=== PATIENT | female | born 2000 | race Two or more races ===

== ENCOUNTER 2019-08-27 15:12 | Inpatient (IN) | payer MEDICAID, OTHER ==
[~2019-08-27] VITALS: Ht 157.5 cm; Wt 82.6 kg
[2019-08-27] MEDS ORDERED: PREN-96 PO (15:46)
[2019-08-27] MEDS ORDERED: LACT. RINGERS/OXYTOCIN 20UNITS 1,000 ML IV SCH (16:04)
[2019-08-27] MEDS ORDERED: LACTATED RINGER'S 1,000 ML IV SCH (16:04)
[2019-08-27] MEDS ORDERED: WITCH HAZEL-GLYCERIN PAD TOP PRN (16:15)
[2019-08-27] MEDS ORDERED: METHYLERGONOVINE MALEATE 0.2 MG/ML AMP IM PRN (16:15)
[2019-08-27] MEDS ORDERED: LIDOCAINE 2%HCL (LOCAL ANESTH.) INJ 20ML MDV ID PRN (16:15)
[2019-08-27] MEDS ORDERED: PHISODERM TOP SOLN 240ML BTL TOP PRN (16:15)
[2019-08-27] MEDS ORDERED: DERMOPLAST 60ML BOTTLE TOP PRN (16:15)
[2019-08-27 16:43] LABS: Basophils # (auto) 0 10 ^3/uL (0-0.2); Basophils % (auto) 0.2 % (0.0-2.0); Eosinophils # (auto) 0.1 10 ^3/uL (0-0.8); Eosinophils % (auto) 0.6 % (0.0-7.0); Hematocrit 34.3 % (36.0-46.0); Hemoglobin 11.5 g/dL (12.2-16.2); Lymphocytes # (auto) 1.6 10 ^3/uL (0.4-5.4); Lymphocytes % (auto) 15.6 % (10.0-50.0); Mean Corpuscular Hemoglobin 29.8 pg (28.0-32.0); Mean Corpuscular Hgb Conc. 33.4 g/dL (32.0-36.0); Mean Corpuscular Volume 89.4 fL (80.0-100.0); Monocytes # (auto) 0.3 10 ^3/uL (0-1.3); Monocytes % (auto) 2.9 % (0.0-12.0); Neutrophils % (auto) 80.7 % (37.0-80.0); Nucleated Red Blood Cells % 0.1 %; Platelet Count (auto) 266 10^3/uL (140-450); Red Blood Cells 3.84 10^6/uL (4.0-5.20); Red Cell Distribution Width 13.9 % (11.8-14.3); White Blood Cell 9.9 10^3/uL (4.4-10.8)
[2019-08-27 16:57] LABS: INR 0.9 (0.9-1.15); Partial Thromboplastin Time 25.4 sec (23.64-32.05)
[2019-08-27 17:00] LABS: Albumin 2.4 g/dL (3.4-5.0); Calcium 8.3 mg/dL (8.5-10.1); Potassium 3.6 mmol/L (3.5-5.1)
[2019-08-27 17:04] LABS: BUN/Creatinine Ratio 10.5; Bilirubin, Total 0.2 mg/dL (0.2-1.0); Total Protein 6.6 g/dL (6.4-8.2)
[2019-08-27] MEDS ORDERED: BUTORPHANOL TARTRATE 2 MG/1 ML VIAL IV PRN (17:15)
[2019-08-27] MEDS ORDERED: TERBUTALINE SULFATE 1 MG/ML 1ML VIAL SC PRN (17:30)
[2019-08-27] MEDS ORDERED: fentaNYL 200mCg/100ml W ROPIVA 100 ML EPI SCH ×2 (18:00→19:15)
[2019-08-27] MEDS ORDERED: NALOXONE HCL 0.4 MG/ML VIAL IV ONE ×3 (18:00→19:15)
[2019-08-27] MEDS ORDERED: LIDOCAINE HCL 2 %PF INJ 10ML AMP IJ ONE (18:00)
[2019-08-27] MEDS ORDERED: ePHEDrine SULFATE 50 MG/ML AMP IV ONE ×3 (18:00→19:15)
[2019-08-27] MEDS ORDERED: fentaNYL CITRATE 100 MCG/2 ML VL IV ONE (18:15)
[2019-08-27] MEDS ORDERED: fentaNYL CITRATE 100 MCG/2 ML VL ONE (18:17)
[2019-08-27] MEDS ORDERED: SODIUM CHLORIDE 0.9% 500 ML IV PRN (19:08)
[2019-08-27] MEDS ORDERED: LACTATED RINGER'S 1,000 ML IV ONE (19:08)
[2019-08-27] MEDS ORDERED: LIDOCAINE W/ EPINEPHRINE 1 % INJ 30ML IJ ONE (19:15)
[2019-08-27] MEDS ORDERED: BETAMETHASONE ACET (6MG/ML) 5ML VIAL IM ONE (21:00)
[2019-08-27] MEDS ORDERED: ACETAMINOPHEN 325 MG TAB PO ONE (21:30)
[2019-08-27] MEDS ORDERED: CLINDAMYCIN 900MG IV 50 ML IV SCH (22:00)
[2019-08-28] MEDS ORDERED: ACETAMINOPHEN 325 MG TAB PO PRN (00:30)
[2019-08-28] MEDS ORDERED: LACT. RINGERS/OXYTOCIN 20UNITS 1,000 ML IV SCH (01:18)
[2019-08-28 03:30] VITALS: BP 107/55
[2019-08-28 04:54] LABS: Alcohol, Urine < 3.0 mg/dL (0-10); Amphetamine Screen, Urine NEGATIVE (NEGATIVE); Barbiturate Scree,Urine NEGATIVE (NEGATIVE); Benzodiazephine Screen, Urine NEGATIVE (NEGATIVE); Cannabinoid Screen, Urine NEGATIVE (NEGATIVE); Cocaine Screen, Urine NEGATIVE (NEGATIVE); Opiate Scree,Urine NEGATIVE (NEGATIVE); Phencyclidine Screen, Urine NEGATIVE (NEGATIVE)
[2019-08-28 04:58] LABS: Urine Bacteria FEW /hpf (None Seen); Urine Blood 2+ /uL (Negative); Urine Specific Gravity 1.013 (1.001-1.035); Urine WBC 272 /hpf (0 - 5)
[2019-08-28 07:30] VITALS: BP 118/74
[2019-08-28] MEDS: IBUPROFEN 600 MG TAB PO PRN (08:35)
[2019-08-28 11:00] VITALS: BP 96/54
[2019-08-28 15:00] VITALS: BP 112/55
[2019-08-28 19:15] VITALS: BP 117/74
[2019-08-28 23:25] VITALS: BP 109/60
[2019-08-29 03:30] VITALS: BP 112/68
[2019-08-29] MEDS: IBUPROFEN 600 MG TAB PO PRN (06:57)
[2019-08-29 07:07] VITALS: BP 121/59
[2019-09-03 01:52] LABS: RPR Non Reactive (Non Reactive); Rubella Antibodies, IgG 1.32 index (Immune >0.99)
== END 2019-08-29 10:20 | disposition home or self-care (01) | DRG 560 ==
LOC: OBSVTOIN 15:12 → LDRP 15:12
PROVIDERS: ADMIT Obstetrics & Gynecology; ATTEND Obstetrics & Gynecology
PROC: 10E0XZZ Delivery of Products of Conception, External Approach (ICD-10-PCS; principal; 2019-08-27)
DX: O42.913 Preterm premature rupture of membranes, unspecified as to length of time between rupture and onset of labor, third trimester (principal); O60.14X0 Preterm labor third trimester with preterm delivery third trimester, not applicable or unspecified; Z88.0 Allergy status to penicillin; Z3A.36 36 weeks gestation of pregnancy; Z37.0 Single live birth; O70.0 First degree perineal laceration during delivery
CPT/HCPCS: 36415; 51702; 59025; 59409; 62282; 71045; 76805; 80053; 80307; 81001; 84112; 85025; 85610; 85730; 86592; 86703; 86762; 86850; 86900; 86901; 87340; 94760; 96361; 96365; 96366; 96372; G0378; J2590; J3490